=== PATIENT | female | born 1950 | race Caucasian/White ===

== ENCOUNTER → 2018-07-31 | Outpatient (CLI) | payer MEDICARE, BC ==
[~2018-07-31] MED LIST: FLEXERIL PO; LEVOTHYROXIN0.025 MG; MOBIC15 MG PO; NORCO 5-325 TA1 EACH PO; ONDANSETRON HCL4 M3 PO; PREDNISONE50 MG PO; ROBAXIN 750 MG750 MG PO; TRIAMTERENE-HC1 EAC1
== END ==
LOC: M.NUC 07-18 13:52
DX: D16.21 Benign neoplasm of long bones of right lower limb (principal); M25.552 Pain in left hip; W19.XXXA Unspecified fall, initial encounter; Z96.651 Presence of right artificial knee joint

== ENCOUNTER → 2021-01-26 | Outpatient (CLI) | payer OTHER | LOC: M.CT 08:15 | PROVIDERS: ATTEND Family Medicine | DX: Z13.6 Encounter for screening for cardiovascular disorders (principal); E78.00 Pure hypercholesterolemia, unspecified ==